=== PATIENT | female | born 1935 | race Caucasian/White ===

== ENCOUNTER 2016-08-14 10:22 | Inpatient (IN) | payer OTHER ==
[~2016-08-14] VITALS: Ht 157.5 cm; Wt 55.8 kg
[~2016-08-14 10:22] MED LIST: LIDODERM 5% P1 PATCH TD
[2016-08-14 11:14] LABS: EOSINOPHIL (%) 1.9 % (0-5); EOSINOPHIL COUNT 0.1 K/uL (0-0.3); HEMATOCRIT 28.1 % (36.0-46.0); IMMATURE GRANULOCYTE (%) 0.3 % (0.0-0.7); INSTRUMENT ABS NEUTROPHIL CT 4.2 K/uL; LYMPHOCYTE COUNT 1.4 K/uL (1.0-2.8); MCH 32.7 PG (29.0-34.0); MCHC 32.4 G/DL (30.0-36.0); MCV 101.1 FL (83-99); MEAN PLAT.VOLUME 9.1 uM^3 (9.5-12.4); MONOCYTE (%) 7.8 % (3-12); MONOCYTE COUNT 0.5 K/uL (0-0.8); NEUTROPHIL (%) 67.5 % (45-76); NEUTROPHIL COUNT 4.2 K/uL (1.8-6.4); PLATELET COUNT 145 K/uL (156-360); RBC DIS.WIDTH-CV 14.4 % (11.8-14.6); RBC DIS.WIDTH-SD 52.6 % (39-53); RED BLOOD COUNT 2.78 M/uL (3.80-5.20); WHITE BLOOD COUNT 6.3 K/uL (4.1-10.2)
[2016-08-14 11:25] LABS: CHLORIDE 98 mEq/L (99-109); POTASSIUM 4.4 mEq/L (3.7-5.4); SODIUM 144 mEq/L (136-147)
[2016-08-14 11:26] LABS: GLUCOSE 114 mg/dL (70-99)
[2016-08-14 11:28] LABS: ANION GAP 12 MEQ/L (2-14)
[2016-08-14 11:30] LABS: GFR ESTIMATE (CALCULATED) 9 mL/min/
[2016-08-14 11:31] LABS: INTER. NORMALIZED RATIO 1.1; PROTHROMBIN TIME 11.2 (9.2-11.2); PTT 30.2 (25-32); UREA NITROGEN (BUN) 37 mg/dL (9-23)
[2016-08-14 11:38] LABS: TROP-I INTERPRETATION INDETERMINATE; TROPONIN-I 0.37 ng/mL (0.0-0.30)
[2016-08-14] MEDS ORDERED: ATIVAN0.5 MG PO (13:10)
[2016-08-14] MEDS ORDERED: ADALAT CC 30 MG30 MG PO (13:11)
[2016-08-14] MEDS ORDERED: LIPITOR10 MG PO (13:12)
[2016-08-14] MEDS ORDERED: ERGOCALCIF50000 UNIT PO (13:12)
[2016-08-14] MEDS ORDERED: NEURONTIN100 MG PO (13:12)
[2016-08-14] MEDS ORDERED: LABETALOL HCL100 MG PO (13:13)
[2016-08-14] MEDS ORDERED: CELEXA20 MG PO (13:13)
[2016-08-14] MEDS ORDERED: PLAVIX75 MG PO (13:13)
[2016-08-14] MEDS ORDERED: LITE COAT ASPI325 M1 PO (13:14)
[2016-08-14] MEDS ORDERED: COLACE100 MG PO (13:16)
[2016-08-14] MEDS ORDERED: COMBIGAN O20 DROP/5 BOTH EYES (13:16)
[2016-08-14] MEDS ORDERED: B COMPLEX WITH1 EACH PO (13:17)
[2016-08-14] MEDS ORDERED: TYLENOL REGULA325 MG PO (13:19)
[2016-08-14] MEDS ORDERED: CATAPRES0.1 MG PO (13:20)
[2016-08-14] MEDS ORDERED: ULTRAM50 MG PO (13:20)
[2016-08-14] MEDS ORDERED: LEVEMIR FL100 UNIT/1 SC (13:50)
[2016-08-14 17:34] VITALS: BP 176/78
[2016-08-14 18:08] LABS: TROP-I INTERPRETATION POSITIVE
[2016-08-14 19:52] VITALS: BP 184/84
[2016-08-14 22:29] LABS: POINT-OF-CARE METER ID UU14174216
[2016-08-14 23:34] VITALS: BP 119/78
[2016-08-15 01:40] LABS: TROP-I INTERPRETATION POSITIVE; TROPONIN-I 1.72 ng/mL (0.0-0.30)
[2016-08-15 03:25] VITALS: BP 183/87
[2016-08-15 06:41] LABS: HEMATOCRIT 29.8 % (36.0-46.0); MCH 32.3 PG (29.0-34.0); MCHC 31.9 G/DL (30.0-36.0); MCV 101.4 FL (83-99); MEAN PLAT.VOLUME 10.2 uM^3 (9.5-12.4); PLATELET COUNT 130 K/uL (156-360); RBC DIS.WIDTH-CV 14.6 % (11.8-14.6); RBC DIS.WIDTH-SD 54.2 % (39-53); RED BLOOD COUNT 2.94 M/uL (3.80-5.20); WHITE BLOOD COUNT 6.9 K/uL (4.1-10.2)
[2016-08-15 07:09] LABS: ANION GAP 13 MEQ/L (2-14); CHLORIDE 98 MEQ/L (99-109); GFR ESTIMATE (CALCULATED) 7 mL/min/; GLUCOSE 145 mg/dL (70-99); POTASSIUM 4.7 MEQ/L (3.7-5.4); SAMPLE HEMOLYSIS CHECK 0; SAMPLE ICTERIC CHECK 0; SAMPLE LIPEMIA CHECK 0; SODIUM 141 MEQ/L (136-147); UREA NITROGEN (BUN) 42 mg/dL (9-23)
[2016-08-15 07:45] VITALS: BP 183/89
[2016-08-15 08:17] LABS: POINT-OF-CARE USER ID NUTSLF44
[2016-08-15 12:05] VITALS: BP 170/78
[2016-08-15 15:45] VITALS: BP 177/90
[2016-08-15 16:38] LABS: TROP-I INTERPRETATION POSITIVE; TROPONIN-I 1.63 ng/mL (0.0-0.30)
[2016-08-15 19:52] VITALS: BP 183/81
[2016-08-15 23:53] VITALS: BP 162/72
[2016-08-16 04:47] VITALS: BP 208/91
[2016-08-16 05:56] LABS: HEMATOCRIT 25.7 % (36.0-46.0); MCH 32.4 PG (29.0-34.0); MCHC 31.5 G/DL (30.0-36.0); MCV 102.8 FL (83-99); MEAN PLAT.VOLUME 10.4 uM^3 (9.5-12.4); PLATELET COUNT 116 K/uL (156-360); RBC DIS.WIDTH-CV 14.5 % (11.8-14.6); RBC DIS.WIDTH-SD 53.9 % (39-53); WHITE BLOOD COUNT 6.5 K/uL (4.1-10.2)
[2016-08-16 06:36] LABS: ANION GAP 9 MEQ/L (2-14); CHLORIDE 102 MEQ/L (99-109); GFR ESTIMATE (CALCULATED) 12 mL/min/; POTASSIUM 4.2 MEQ/L (3.7-5.4); SAMPLE HEMOLYSIS CHECK 0; SAMPLE ICTERIC CHECK 0; SAMPLE LIPEMIA CHECK 0; SODIUM 141 MEQ/L (136-147); UREA NITROGEN (BUN) 22 mg/dL (9-23)
[2016-08-16 06:38] LABS: GLUCOSE 107 mg/dL (70-99)
[2016-08-16 07:25] VITALS: BP 119/57
[2016-08-16 07:41] LABS: POINT-OF-CARE METER ID UU13113781
[2016-08-16 10:31] LABS: TROP-I INTERPRETATION POSITIVE; TROPONIN-I 2.05 ng/mL (0.0-0.30)
[2016-08-16 11:54] LABS: POINT-OF-CARE METER ID UU13113702
[2016-08-16 12:26] VITALS: BP 155/76
[2016-08-16 15:37] VITALS: BP 154/70
[2016-08-16 20:10] VITALS: BP 173/77
[2016-08-17] VITALS (7 sets, daily range): BP systolic 142–195; BP diastolic 63–84
[2016-08-17 04:50] LABS: EOSINOPHIL (%) 4.2 % (0-5); EOSINOPHIL COUNT 0.4 K/uL (0-0.3); HEMATOCRIT 26.3 % (36.0-46.0); IMMATURE GRANULOCYTE (%) 0.2 % (0.0-0.7); INSTRUMENT ABS NEUTROPHIL CT 6.9 K/uL; LYMPHOCYTE COUNT 1.7 K/uL (1.0-2.8); MCH 32.8 PG (29.0-34.0); MCHC 31.9 G/DL (30.0-36.0); MCV 102.7 FL (83-99); MONOCYTE (%) 5.6 % (3-12); MONOCYTE COUNT 0.5 K/uL (0-0.8); NEUTROPHIL (%) 71.9 % (45-76); NEUTROPHIL COUNT 6.9 K/uL (1.8-6.4); PLATELET COUNT 149 K/uL (156-360); RBC DIS.WIDTH-CV 14.3 % (11.8-14.6); RBC DIS.WIDTH-SD 53.8 % (39-53); RED BLOOD COUNT 2.56 M/uL (3.80-5.20); WHITE BLOOD COUNT 9.6 K/uL (4.1-10.2)
[2016-08-17 04:53] LABS: CHLORIDE 104 mEq/L (99-109); POTASSIUM 4.4 mEq/L (3.7-5.4); SODIUM 139 mEq/L (136-147)
[2016-08-17 04:55] LABS: GLUCOSE 125 mg/dL (70-99)
[2016-08-17 04:56] LABS: ANION GAP 11 MEQ/L (2-14)
[2016-08-17 04:58] LABS: GFR ESTIMATE (CALCULATED) 9 mL/min/
[2016-08-17 04:59] LABS: UREA NITROGEN (BUN) 31 mg/dL (9-23)
[2016-08-17 12:21] LABS: TROP-I INTERPRETATION POSITIVE; TROPONIN-I 1.28 ng/mL (0.0-0.30)
[2016-08-17 13:14] LABS: HBSG INDEX 0.17
[2016-08-17 16:53] LABS: POINT-OF-CARE METER ID UU14174216; POINT-OF-CARE USER ID NUTSLF44
[2016-08-17 20:51] LABS: POINT-OF-CARE METER ID UU14174216
[2016-08-18 00:23] VITALS: BP 180/88
[2016-08-18 03:01] VITALS: BP 135/64
[2016-08-18 03:02] LABS: BASOPHIL COUNT 0.1 K/uL (0-0.1); EOSINOPHIL (%) 4.6 % (0-5); EOSINOPHIL COUNT 0.3 K/uL (0-0.3); HEMATOCRIT 24.5 % (36.0-46.0); IMMATURE GRANULOCYTE (%) 0.4 % (0.0-0.7); INSTRUMENT ABS NEUTROPHIL CT 4.5 K/uL; LYMPHOCYTE COUNT 1.5 K/uL (1.0-2.8); MCH 32.9 PG (29.0-34.0); MCHC 32.2 G/DL (30.0-36.0); MCV 102.1 FL (83-99); MEAN PLAT.VOLUME 9.8 uM^3 (9.5-12.4); MONOCYTE (%) 8.3 % (3-12); MONOCYTE COUNT 0.6 K/uL (0-0.8); NEUTROPHIL (%) 64.1 % (45-76); NEUTROPHIL COUNT 4.5 K/uL (1.8-6.4); PLATELET COUNT 111 K/uL (156-360); RBC DIS.WIDTH-CV 14.4 % (11.8-14.6); RBC DIS.WIDTH-SD 52.6 % (39-53)
[2016-08-18 03:13] LABS: CHLORIDE 101 mEq/L (99-109); POTASSIUM 4.2 mEq/L (3.7-5.4); SODIUM 137 mEq/L (136-147)
[2016-08-18 03:14] LABS: GLUCOSE 112 mg/dL (70-99)
[2016-08-18 03:16] LABS: ANION GAP 9 MEQ/L (2-14)
[2016-08-18 03:18] LABS: GFR ESTIMATE (CALCULATED) 13 mL/min/
[2016-08-18 03:19] LABS: UREA NITROGEN (BUN) 18 mg/dL (9-23)
[2016-08-18 07:45] LABS: POINT-OF-CARE METER ID UU14174216
[2016-08-18 09:39] VITALS: BP 179/68
[2016-08-18 11:34] LABS: POINT-OF-CARE METER ID UU14174216
[2016-08-18 11:48] VITALS: BP 160/65
[2016-08-18 15:30] VITALS: BP 134/56
[2016-08-18 16:29] LABS: POINT-OF-CARE METER ID UU14174216
[2016-08-18 19:55] VITALS: BP 174/77
[2016-08-19 00:37] VITALS: BP 159/70
[2016-08-19 04:43] VITALS: BP 160/70
[2016-08-19 06:16] LABS: BASOPHIL COUNT 0.1 K/uL (0-0.1); EOSINOPHIL (%) 4.2 % (0-5); EOSINOPHIL COUNT 0.3 K/uL (0-0.3); HEMATOCRIT 22.8 % (36.0-46.0); IMMATURE GRANULOCYTE (%) 0.4 % (0.0-0.7); INSTRUMENT ABS NEUTROPHIL CT 4.7 K/uL; LYMPHOCYTE COUNT 1.3 K/uL (1.0-2.8); MCH 33.5 PG (29.0-34.0); MCHC 32.5 G/DL (30.0-36.0); MCV 103.2 FL (83-99); MEAN PLAT.VOLUME 9.8 uM^3 (9.5-12.4); MONOCYTE (%) 8.1 % (3-12); MONOCYTE COUNT 0.6 K/uL (0-0.8); NEUTROPHIL (%) 68.1 % (45-76); NEUTROPHIL COUNT 4.7 K/uL (1.8-6.4); PLATELET COUNT 119 K/uL (156-360); RBC DIS.WIDTH-CV 15.3 % (11.8-14.6); RBC DIS.WIDTH-SD 54.5 % (39-53); RED BLOOD COUNT 2.21 M/uL (3.80-5.20); WHITE BLOOD COUNT 6.9 K/uL (4.1-10.2)
[2016-08-19 06:44] LABS: ANION GAP 8 MEQ/L (2-14); CHLORIDE 101 MEQ/L (99-109); GFR ESTIMATE (CALCULATED) 9 mL/min/; GLUCOSE 97 mg/dL (70-99); POTASSIUM 4.3 MEQ/L (3.7-5.4); SAMPLE HEMOLYSIS CHECK 0; SAMPLE ICTERIC CHECK 0; SAMPLE LIPEMIA CHECK 0; SODIUM 136 MEQ/L (136-147); UREA NITROGEN (BUN) 26 mg/dL (9-23)
[2016-08-19 07:46] LABS: POINT-OF-CARE METER ID UU14174216
[2016-08-19 08:04] VITALS: BP 160/64
[2016-08-19 11:43] VITALS: BP 157/60
[2016-08-19 15:00] VITALS: BP 150/65
[2016-08-19 20:00] VITALS: BP 178/66
[2016-08-20 00:15] VITALS: BP 189/79
[2016-08-20 04:10] VITALS: BP 161/70
[2016-08-20 07:20] VITALS: BP 111/46
[2016-08-20 08:11] LABS: EOSINOPHIL (%) 3.8 % (0-5); EOSINOPHIL COUNT 0.2 K/uL (0-0.3); HEMATOCRIT 22.5 % (36.0-46.0); IMMATURE GRANULOCYTE (%) 0.5 % (0.0-0.7); INSTRUMENT ABS NEUTROPHIL CT 4.6 K/uL; MCH 32.7 PG (29.0-34.0); MCHC 31.1 G/DL (30.0-36.0); MCV 105.1 FL (83-99); MONOCYTE (%) 7.1 % (3-12); MONOCYTE COUNT 0.5 K/uL (0-0.8); NEUTROPHIL (%) 72.7 % (45-76); NEUTROPHIL COUNT 4.6 K/uL (1.8-6.4); PLATELET COUNT 130 K/uL (156-360); RBC DIS.WIDTH-CV 15.7 % (11.8-14.6); RBC DIS.WIDTH-SD 56.6 % (39-53); RED BLOOD COUNT 2.14 M/uL (3.80-5.20); WHITE BLOOD COUNT 6.3 K/uL (4.1-10.2)
[2016-08-20 08:29] LABS: ANION GAP 10 MEQ/L (2-14); CHLORIDE 101 MEQ/L (99-109); GFR ESTIMATE (CALCULATED) 7 mL/min/; GLUCOSE 103 mg/dL (70-99); POTASSIUM 4.5 MEQ/L (3.7-5.4); SAMPLE HEMOLYSIS CHECK 0; SAMPLE ICTERIC CHECK 0; SAMPLE LIPEMIA CHECK 0; SODIUM 137 MEQ/L (136-147); UREA NITROGEN (BUN) 37 mg/dL (9-23)
[2016-08-20 12:00] VITALS: BP 190/70
[2016-08-20 15:20] VITALS: BP 109/54
[2016-08-20 19:10] VITALS: BP 189/79
[2016-08-20 20:14] LABS: HEMATOCRIT 29.7 % (36.0-46.0); MCV 101.4 FL (83-99)
[2016-08-21] VITALS: BP 178/77
[2016-08-21 03:09] VITALS: BP 160/51
[2016-08-21 08:19] VITALS: BP 178/83
[2016-08-21 11:45] VITALS: BP 173/83
[2016-08-21] MEDS ORDERED: LABETALOL HCL200 MG PO (13:37)
[2016-08-21] MEDS ORDERED: Procardia XL,Adalat PO (13:37)
[2016-08-21] MEDS ORDERED: LISINOPRIL10 MG PO (13:38)
[2016-08-21 14:00] VITALS: BP 114/65
== END 2016-08-21 14:35 | disposition home or self-care (01) | DRG 280 ==
LOC: EME → EDBD 10:22 → EME 10:22 → 4EAST 14:02 → EDOF 14:02 → 4EAST 14:02
PROVIDERS: Emergency Medicine; Internal Medicine; Internal Medicine Cardiovascular Disease; Physician Assistant Medical; Student in an Organized Health Care Education/Training Program
PROC: 5A1D60Z (ICD-10-PCS; principal; 2016-08-15)
DX: I21.4 Non-ST elevation (NSTEMI) myocardial infarction (principal); N25.81 Secondary hyperparathyroidism of renal origin; N18.6 End stage renal disease; I12.0 Hypertensive chronic kidney disease with stage 5 chronic kidney disease or end stage renal disease; Z86.73 Personal history of transient ischemic attack (TIA), and cerebral infarction without residual deficits; Z99.2 Dependence on renal dialysis; R07.9 Chest pain, unspecified; E11.22 Type 2 diabetes mellitus with diabetic chronic kidney disease; I25.10 Atherosclerotic heart disease of native coronary artery without angina pectoris; I44.7 Left bundle-branch block, unspecified; E78.5 Hyperlipidemia, unspecified; Z95.5 Presence of coronary angioplasty implant and graft; I24.9 Acute ischemic heart disease, unspecified; Z79.4 Long term (current) use of insulin; Z95.1 Presence of aortocoronary bypass graft; I70.0 Atherosclerosis of aorta; D63.1 Anemia in chronic kidney disease; Z88.8 Allergy status to other drugs, medicaments and biological substances; E83.39 Other disorders of phosphorus metabolism
CPT/HCPCS: 71010; 71020; 78452; 80048; 80069; 82948; 84484; 85014; 85018; 85025; 85027; 85610; 85730; 86850; 86900; 86901; 86920; 87340; 93005; 93017; 93306; 94799; 99281; 99285; A9500; G0378; J0881; J1270; J1644; J1756; J1815; J2785; J2997; P9016

== ENCOUNTER 2016-09-24 21:10 | Inpatient (IN) | payer OTHER ==
[~2016-09-24] VITALS: Ht 154.9 cm; Wt 58.7 kg
[~2016-09-24 21:10] MED LIST changes: +ADALAT CC 30 MG30 MG PO; +ATIVAN0.5 MG PO; +B COMPLEX WITH1 EACH PO; +CATAPRES0.1 MG PO; +CELEXA20 MG PO; +COLACE100 MG PO; +COMBIGAN O20 DROP/5 BOTH EYES; +ERGOCALCIF50000 UNIT PO; +LABETALOL HCL100 MG PO; +LABETALOL HCL200 MG PO; +LEVEMIR FL100 UNIT/1 SC; +LIPITOR10 MG PO; +LISINOPRIL10 MG PO; +LITE COAT ASPI325 M1 PO; +NEURONTIN100 MG PO; +PLAVIX75 MG PO; +Procardia XL,Adalat PO; +TYLENOL REGULA325 MG PO; +ULTRAM50 MG PO
[2016-09-24 21:32] LABS: HEMATOCRIT 30.4 % (36.0-46.0); MCH 33.9 PG (29.0-34.0); MCHC 32.6 G/DL (30.0-36.0); MCV 104.1 FL (83-99); MEAN PLAT.VOLUME 9.3 uM^3 (9.5-12.4); PLATELET COUNT 154 K/uL (156-360); RBC DIS.WIDTH-SD 61.5 % (39-53); RED BLOOD COUNT 2.92 M/uL (3.80-5.20); WHITE BLOOD COUNT 6.2 K/uL (4.1-10.2)
[2016-09-24 21:40] LABS: CHLORIDE 99 mEq/L (99-109); POTASSIUM 4.2 mEq/L (3.7-5.4); SODIUM 143 mEq/L (136-147)
[2016-09-24 21:42] LABS: GLUCOSE 144 mg/dL (70-99)
[2016-09-24 21:43] LABS: INTER. NORMALIZED RATIO 1.1; PROTHROMBIN TIME 10.9 (9.2-11.2); PTT 28.9 (25-32)
[2016-09-24 21:44] LABS: ANION GAP 13 MEQ/L (2-14)
[2016-09-24 21:46] LABS: GFR ESTIMATE (CALCULATED) 11 mL/min/
[2016-09-24 21:47] LABS: UREA NITROGEN (BUN) 24 mg/dL (9-23)
[2016-09-24 22:14] LABS: TROP-I INTERPRETATION NEGATIVE; TROPONIN-I 0.08 ng/mL (0.0-0.30)
[2016-09-24] MEDS ORDERED: COLACE100 MG PO (22:25)
[2016-09-24] MEDS ORDERED: PROCARDIA XL60 MG PO (22:27)
[2016-09-24] MEDS ORDERED: SUPER B COMP1 TABLET PO (22:28)
[2016-09-24] MEDS ORDERED: REFRESH PLUS1 EACH LEFT EYE (22:30)
[2016-09-25] VITALS (7 sets, daily range): BP systolic 136–190; BP diastolic 60–82
[2016-09-25 00:48] LABS: BASE EXCESS 8.1 mEq/L (-3 to +3); BICARBONATE 33.3 mEq/L (22-26); CARBOXY HGB 2.1 % (0-5); METHEMOGLOBIN 0.8 % (0-1.5); PCO2 49 mm Hg (35-45); PO2 108 mm Hg (80-100); pH 7.44 (7.35-7.45)
[2016-09-25 00:49] LABS: COMMENTS - BLOOD GASES C+; DEVICE NCHH; FI02 100 %; O2 FLOW 20 L/MIN; SITE RR; TOTAL RESP RATE 18 resp/min
[2016-09-25 09:45] LABS: INTER. NORMALIZED RATIO 1.1; PROTHROMBIN TIME 11.3 (9.2-11.2); PTT 37.9 (25-32)
[2016-09-25 13:06] LABS: POINT-OF-CARE METER ID UU14174216
[2016-09-25 16:01] LABS: POINT-OF-CARE METER ID UU14174216
[2016-09-25 21:28] LABS: POINT-OF-CARE METER ID UU14174216
[2016-09-26 04:23] VITALS: BP 147/65
[2016-09-26 04:59] LABS: HEMATOCRIT 27.2 % (36.0-46.0); MCH 33.9 PG (29.0-34.0); MCV 105.8 FL (83-99); PLATELET COUNT 122 K/uL (156-360); RBC DIS.WIDTH-CV 15.9 % (11.8-14.6); RBC DIS.WIDTH-SD 61.7 % (39-53); RED BLOOD COUNT 2.57 M/uL (3.80-5.20); WHITE BLOOD COUNT 7.9 K/uL (4.1-10.2)
[2016-09-26 05:12] LABS: CHLORIDE 100 mEq/L (99-109); POTASSIUM 4.8 mEq/L (3.7-5.4); SODIUM 140 mEq/L (136-147)
[2016-09-26 05:15] LABS: GLUCOSE 120 mg/dL (70-99)
[2016-09-26 05:16] LABS: ANION GAP 12 MEQ/L (2-14)
[2016-09-26 05:18] LABS: ALKALINE PHOSPHATASE 65 IU/L (3-129)
[2016-09-26 05:19] LABS: GFR ESTIMATE (CALCULATED) 7 mL/min/
[2016-09-26 05:27] LABS: UREA NITROGEN (BUN) 39 mg/dL (9-23)
[2016-09-26 07:17] VITALS: BP 164/74
[2016-09-26 14:59] VITALS: BP 164/68
[2016-09-26 21:05] VITALS: BP 184/79
[2016-09-27 00:19] VITALS: BP 147/67
[2016-09-27 04:24] VITALS: BP 132/64
[2016-09-27 07:33] LABS: BASOPHIL COUNT 0.1 K/uL (0-0.1); EOSINOPHIL (%) 2.6 % (0-5); EOSINOPHIL COUNT 0.2 K/uL (0-0.3); IMMATURE GRANULOCYTE (%) 0.4 % (0.0-0.7); INSTRUMENT ABS NEUTROPHIL CT 5.4 K/uL; MCH 33.6 PG (29.0-34.0); MCHC 31.3 G/DL (30.0-36.0); MCV 107.1 FL (83-99); MEAN PLAT.VOLUME 10.1 uM^3 (9.5-12.4); MONOCYTE (%) 7.1 % (3-12); MONOCYTE COUNT 0.5 K/uL (0-0.8); NEUTROPHIL COUNT 5.4 K/uL (1.8-6.4); PLATELET COUNT 157 K/uL (156-360); RBC DIS.WIDTH-CV 15.4 % (11.8-14.6); RBC DIS.WIDTH-SD 61.3 % (39-53); WHITE BLOOD COUNT 7.2 K/uL (4.1-10.2)
[2016-09-27 07:48] LABS: ANION GAP 13 MEQ/L (2-14); CHLORIDE 95 MEQ/L (99-109); GLUCOSE 98 mg/dL (70-99); POTASSIUM 4.7 MEQ/L (3.7-5.4); SAMPLE HEMOLYSIS CHECK 0; SAMPLE ICTERIC CHECK 0; SAMPLE LIPEMIA CHECK 0; SODIUM 137 MEQ/L (136-147); UREA NITROGEN (BUN) 26 mg/dL (9-23)
[2016-09-27 07:50] LABS: GFR ESTIMATE (CALCULATED) 11 mL/min/
[2016-09-27 13:47] LABS: POINT-OF-CARE METER ID UU13113675
[2016-09-27 14:56] LABS: HEMATOCRIT 26.7 % (36.0-46.0); MCH 34.1 PG (29.0-34.0); MCHC 31.5 G/DL (30.0-36.0); MCV 108.5 FL (83-99); PLATELET COUNT 156 K/uL (156-360); RBC DIS.WIDTH-CV 15.5 % (11.8-14.6); RBC DIS.WIDTH-SD 61.2 % (39-53); RED BLOOD COUNT 2.46 M/uL (3.80-5.20)
[2016-09-27 15:07] VITALS: BP 157/68
[2016-09-27 15:10] LABS: WHITE BLOOD COUNT 11.9 K/uL (4.1-10.2)
[2016-09-27 19:44] VITALS: BP 141/83
[2016-09-27 23:40] VITALS: BP 135/60
[2016-09-28 03:59] VITALS: BP 144/62
[2016-09-28 05:10] LABS: HEMATOCRIT 21.3 % (36.0-46.0); MCH 34.5 PG (29.0-34.0); MCHC 32.9 G/DL (30.0-36.0); MCV 104.9 FL (83-99); MEAN PLAT.VOLUME 10.4 uM^3 (9.5-12.4); PLATELET COUNT 165 K/uL (156-360); RBC DIS.WIDTH-CV 15.2 % (11.8-14.6); RBC DIS.WIDTH-SD 58.9 % (39-53); RED BLOOD COUNT 2.03 M/uL (3.80-5.20)
[2016-09-28 05:11] LABS: WHITE BLOOD COUNT 8.2 K/uL (4.1-10.2)
[2016-09-28 05:14] LABS: CHLORIDE 96 mEq/L (99-109); POTASSIUM 5.6 mEq/L (3.7-5.4); SODIUM 134 mEq/L (136-147)
[2016-09-28 05:16] LABS: GLUCOSE 136 mg/dL (70-99)
[2016-09-28 05:17] LABS: ANION GAP 16 MEQ/L (2-14)
[2016-09-28 05:20] LABS: GFR ESTIMATE (CALCULATED) 7 mL/min/
[2016-09-28 05:24] LABS: TROP-I INTERPRETATION NEGATIVE; TROPONIN-I 0.12 ng/mL (0.0-0.30)
[2016-09-28 05:25] LABS: UREA NITROGEN (BUN) 45 mg/dL (9-23)
[2016-09-28 06:51] LABS: POINT-OF-CARE METER ID UU14188577
[2016-09-28 09:24] LABS: EOSINOPHIL (%) 0.7 % (0-5); EOSINOPHIL COUNT 0.1 K/uL (0-0.3); HEMATOCRIT 20.9 % (36.0-46.0); IMMATURE GRANULOCYTE (%) 0.6 % (0.0-0.7); IMMATURE GRANULOCYTE COUNT 0.1 K/uL; INSTRUMENT ABS NEUTROPHIL CT 8.3 K/uL; MCH 34.2 PG (29.0-34.0); MCHC 32.1 G/DL (30.0-36.0); MCV 106.6 FL (83-99); MEAN PLAT.VOLUME 10.2 uM^3 (9.5-12.4); MONOCYTE (%) 8.5 % (3-12); MONOCYTE COUNT 0.9 K/uL (0-0.8); NEUTROPHIL (%) 80.6 % (45-76); NEUTROPHIL COUNT 8.3 K/uL (1.8-6.4); PLATELET COUNT 185 K/uL (156-360); RBC DIS.WIDTH-CV 15.5 % (11.8-14.6); RBC DIS.WIDTH-SD 59.8 % (39-53); RED BLOOD COUNT 1.96 M/uL (3.80-5.20); WHITE BLOOD COUNT 10.3 K/uL (4.1-10.2)
[2016-09-28 19:43] VITALS: BP 132/61
[2016-09-28 22:12] LABS: POINT-OF-CARE METER ID UU14188577
[2016-09-28 23:39] VITALS: BP 132/63
[2016-09-29 03:46] VITALS: BP 139/63
[2016-09-29 04:54] LABS: HEMATOCRIT 26.4 % (36.0-46.0); MCV 97.1 FL (83-99)
[2016-09-29 06:46] LABS: POINT-OF-CARE METER ID UU14188577
[2016-09-29 07:31] VITALS: BP 136/65
[2016-09-29 11:28] VITALS: BP 128/62
[2016-09-29 15:22] VITALS: BP 126/60
[2016-09-29 19:41] VITALS: BP 161/70
[2016-09-29 23:46] VITALS: BP 180/74
[2016-09-30] VITALS (7 sets, daily range): BP systolic 177–199; BP diastolic 74–93
[2016-09-30 05:54] LABS: EOSINOPHIL (%) 1.7 % (0-5); EOSINOPHIL COUNT 0.2 K/uL (0-0.3); HEMATOCRIT 24.5 % (36.0-46.0); IMMATURE GRANULOCYTE (%) 0.4 % (0.0-0.7); INSTRUMENT ABS NEUTROPHIL CT 8.3 K/uL; MCH 33.3 PG (29.0-34.0); MCHC 33.9 G/DL (30.0-36.0); MCV 98.4 FL (83-99); MEAN PLAT.VOLUME 9.9 uM^3 (9.5-12.4); MONOCYTE (%) 7.9 % (3-12); MONOCYTE COUNT 0.8 K/uL (0-0.8); NEUTROPHIL (%) 80.5 % (45-76); NEUTROPHIL COUNT 8.3 K/uL (1.8-6.4); PLATELET COUNT 167 K/uL (156-360); RBC DIS.WIDTH-CV 17.6 % (11.8-14.6); RBC DIS.WIDTH-SD 63.4 % (39-53); WHITE BLOOD COUNT 10.3 K/uL (4.1-10.2)
[2016-09-30 06:01] LABS: RED BLOOD COUNT 2.49 M/uL (3.80-5.20)
[2016-09-30 06:14] LABS: ANION GAP 13 MEQ/L (2-14); CHLORIDE 96 MEQ/L (99-109); GFR ESTIMATE (CALCULATED) 8 mL/min/; GLUCOSE 121 mg/dL (70-99); SAMPLE HEMOLYSIS CHECK 0; SAMPLE ICTERIC CHECK 0; SAMPLE LIPEMIA CHECK 0; SODIUM 135 MEQ/L (136-147); UREA NITROGEN (BUN) 39 mg/dL (9-23)
[2016-09-30 06:17] LABS: POTASSIUM 3.9 MEQ/L (3.7-5.4)
[2016-09-30 06:38] LABS: POINT-OF-CARE METER ID UU14188577
[2016-09-30 16:35] LABS: POINT-OF-CARE METER ID UU14188577
[2016-10-01] VITALS (7 sets, daily range): BP systolic 128–184; BP diastolic 52–70
[2016-10-01 05:54] LABS: POINT-OF-CARE METER ID UU14149397
[2016-10-01 06:08] LABS: HEMATOCRIT 24.7 % (36.0-46.0); MCH 33.1 PG (29.0-34.0); MCHC 33.2 G/DL (30.0-36.0); MCV 99.6 FL (83-99); MEAN PLAT.VOLUME 9.7 uM^3 (9.5-12.4); PLATELET COUNT 191 K/uL (156-360); RBC DIS.WIDTH-CV 16.9 % (11.8-14.6); RBC DIS.WIDTH-SD 61.2 % (39-53); RED BLOOD COUNT 2.48 M/uL (3.80-5.20); WHITE BLOOD COUNT 10.2 K/uL (4.1-10.2)
[2016-10-01 06:44] LABS: ANION GAP 15 MEQ/L (2-14); CHLORIDE 97 MEQ/L (99-109); GFR ESTIMATE (CALCULATED) 7 mL/min/; POTASSIUM 4.1 MEQ/L (3.7-5.4); SAMPLE HEMOLYSIS CHECK 0; SAMPLE ICTERIC CHECK 0; SAMPLE LIPEMIA CHECK 0; SODIUM 136 MEQ/L (136-147); UREA NITROGEN (BUN) 48 mg/dL (9-23)
[2016-10-01 06:45] LABS: GLUCOSE 90 mg/dL (70-99)
[2016-10-01 11:34] LABS: POINT-OF-CARE METER ID UU14149397
[2016-10-01 21:30] LABS: POINT-OF-CARE METER ID UU14149397
[2016-10-02 04:21] VITALS: BP 130/59
[2016-10-02 06:34] LABS: POINT-OF-CARE METER ID UU14188577
[2016-10-02 08:10] VITALS: BP 143/65
[2016-10-02 10:38] LABS: EOSINOPHIL (%) 1.3 % (0-5); EOSINOPHIL COUNT 0.1 K/uL (0-0.3); HEMATOCRIT 25.7 % (36.0-46.0); IMMATURE GRANULOCYTE (%) 0.5 % (0.0-0.7); IMMATURE GRANULOCYTE COUNT 0.1 K/uL; INSTRUMENT ABS NEUTROPHIL CT 8.6 K/uL; LYMPHOCYTE COUNT 0.6 K/uL (1.0-2.8); MCH 32.3 PG (29.0-34.0); MCHC 32.3 G/DL (30.0-36.0); MEAN PLAT.VOLUME 9.7 uM^3 (9.5-12.4); MONOCYTE (%) 7.6 % (3-12); MONOCYTE COUNT 0.8 K/uL (0-0.8); NEUTROPHIL (%) 84.4 % (45-76); NEUTROPHIL COUNT 8.6 K/uL (1.8-6.4); PLATELET COUNT 233 K/uL (156-360); RBC DIS.WIDTH-CV 16.9 % (11.8-14.6); RBC DIS.WIDTH-SD 60.6 % (39-53); RED BLOOD COUNT 2.57 M/uL (3.80-5.20); WHITE BLOOD COUNT 10.2 K/uL (4.1-10.2)
[2016-10-02 10:49] LABS: CHLORIDE 99 mEq/L (99-109); POTASSIUM 4.3 mEq/L (3.7-5.4); SODIUM 137 mEq/L (136-147)
[2016-10-02 10:53] LABS: ANION GAP 18 MEQ/L (2-14); TOTAL BILIRUBIN 0.8 mg/dL (0.0-1.0)
[2016-10-02 10:55] LABS: ALKALINE PHOSPHATASE 57 IU/L (3-129); GFR ESTIMATE (CALCULATED) 10 mL/min/
[2016-10-02 10:56] LABS: GLUCOSE 157 mg/dL (70-99); UREA NITROGEN (BUN) 33 mg/dL (9-23)
[2016-10-02 15:27] VITALS: BP 144/64
[2016-10-02 17:01] LABS: POINT-OF-CARE METER ID UU14149397
[2016-10-02 19:55] VITALS: BP 136/62
[2016-10-02 20:59] LABS: POINT-OF-CARE METER ID UU14149397; POINT-OF-CARE USER ID AHSUCEG
[2016-10-02 23:15] VITALS: BP 119/57
[2016-10-03 03:30] VITALS: BP 132/63
[2016-10-03 05:58] LABS: EOSINOPHIL (%) 1.6 % (0-5); EOSINOPHIL COUNT 0.2 K/uL (0-0.3); HEMATOCRIT 23.8 % (36.0-46.0); IMMATURE GRANULOCYTE (%) 0.2 % (0.0-0.7); LYMPHOCYTE COUNT 0.7 K/uL (1.0-2.8); MCH 32.5 PG (29.0-34.0); MCHC 32.4 G/DL (30.0-36.0); MCV 100.4 FL (83-99); MEAN PLAT.VOLUME 9.4 uM^3 (9.5-12.4); MONOCYTE (%) 10.2 % (3-12); NEUTROPHIL (%) 80.5 % (45-76); PLATELET COUNT 216 K/uL (156-360); RBC DIS.WIDTH-CV 16.3 % (11.8-14.6); RBC DIS.WIDTH-SD 59.8 % (39-53); RED BLOOD COUNT 2.37 M/uL (3.80-5.20)
[2016-10-03 06:35] LABS: ALKALINE PHOSPHATASE 51 IU/L (3-129); ANION GAP 14 MEQ/L (2-14); CHLORIDE 95 MEQ/L (99-109); GLUCOSE 127 mg/dL (70-99); POTASSIUM 4.1 MEQ/L (3.7-5.4); SAMPLE HEMOLYSIS CHECK 0; SAMPLE ICTERIC CHECK 0; SAMPLE LIPEMIA CHECK 0; SODIUM 133 MEQ/L (136-147); TOTAL BILIRUBIN 0.7 MG/DL (0.0-1.0); UREA NITROGEN (BUN) 40 mg/dL (9-23)
[2016-10-03 06:36] LABS: GFR ESTIMATE (CALCULATED) 8 mL/min/
[2016-10-03 11:41] VITALS: BP 157/70
[2016-10-03] MEDS ORDERED: SPIRIVA RESPIMAT4 GM IH (12:45)
[2016-10-03] MEDS ORDERED: ADVAIR HFA120 INHALA IH (12:46)
[2016-10-03] MEDS ORDERED: ACIDOPHILUS LA1 EACH PO (12:47)
[2016-10-03] MEDS ORDERED: THERAGRAN1 TABLET PO (12:47)
[2016-10-03] MEDS ORDERED: ENDOCET 5-3251 EACH PO (12:48)
[2016-10-03] MEDS ORDERED: VENTOLIN HFA18 GM IH (12:48)
[2016-10-03 12:55] LABS: HEMATOCRIT 25.1 % (36.0-46.0); MCV 98.8 FL (83-99)
[2016-10-03] MEDS ORDERED: NOVOLOG PE100 UNITS/ SC (13:01)
[2016-10-03 16:06] VITALS: BP 125/60
[2016-10-03 16:09] LABS: POINT-OF-CARE METER ID UU14149397
[2016-10-03 19:38] VITALS: BP 159/70
[2016-10-03 23:51] VITALS: BP 181/77
[2016-10-04 04:09] VITALS: BP 194/79
[2016-10-04 07:02] LABS: POINT-OF-CARE METER ID UU14149397
[2016-10-04 08:14] VITALS: BP 179/77
[2016-10-04 12:00] LABS: POINT-OF-CARE METER ID UU14149397
[2016-10-04 12:06] VITALS: BP 173/71
[2016-10-04 16:04] LABS: HEMATOCRIT 26.2 % (36.0-46.0); MCH 32.4 PG (29.0-34.0); MCHC 32.1 G/DL (30.0-36.0); MCV 101.2 FL (83-99); MEAN PLAT.VOLUME 9.1 uM^3 (9.5-12.4); PLATELET COUNT 265 K/uL (156-360); RBC DIS.WIDTH-SD 59.5 % (39-53); RED BLOOD COUNT 2.59 M/uL (3.80-5.20); WHITE BLOOD COUNT 9.6 K/uL (4.1-10.2)
[2016-10-04 16:16] LABS: CHLORIDE 98 mEq/L (99-109); POTASSIUM 4.3 mEq/L (3.7-5.4); SODIUM 135 mEq/L (136-147)
[2016-10-04 16:18] LABS: GLUCOSE 113 mg/dL (70-99)
[2016-10-04 16:19] LABS: ANION GAP 15 MEQ/L (2-14)
[2016-10-04 16:22] LABS: GFR ESTIMATE (CALCULATED) 10 mL/min/
[2016-10-04 16:23] LABS: UREA NITROGEN (BUN) 34 mg/dL (9-23)
[2016-10-04 16:28] VITALS: BP 168/77
[2016-10-04 19:41] VITALS: BP 160/68
[2016-10-04 23:35] VITALS: BP 167/77
[2016-10-05 03:23] VITALS: BP 169/75
[2016-10-05 06:58] LABS: POINT-OF-CARE METER ID UU14188577
[2016-10-05 07:14] VITALS: BP 175/74
[2016-10-05 07:55] LABS: BASOPHIL COUNT 0.1 K/uL (0-0.1); EOSINOPHIL (%) 3.7 % (0-5); EOSINOPHIL COUNT 0.3 K/uL (0-0.3); HEMATOCRIT 29.2 % (36.0-46.0); IMMATURE GRANULOCYTE (%) 0.6 % (0.0-0.7); INSTRUMENT ABS NEUTROPHIL CT 4.9 K/uL; LYMPHOCYTE COUNT 0.9 K/uL (1.0-2.8); MCH 31.7 PG (29.0-34.0); MCHC 31.5 G/DL (30.0-36.0); MCV 100.7 FL (83-99); MEAN PLAT.VOLUME 9.2 uM^3 (9.5-12.4); MONOCYTE (%) 13.1 % (3-12); MONOCYTE COUNT 0.9 K/uL (0-0.8); NEUTROPHIL (%) 69.1 % (45-76); NEUTROPHIL COUNT 4.9 K/uL (1.8-6.4); PLATELET COUNT 310 K/uL (156-360); RBC DIS.WIDTH-CV 15.9 % (11.8-14.6); RBC DIS.WIDTH-SD 58.9 % (39-53)
[2016-10-05 08:49] LABS: ALKALINE PHOSPHATASE 56 IU/L (3-129); ANION GAP 14 MEQ/L (2-14); CHLORIDE 98 MEQ/L (99-109); GFR ESTIMATE (CALCULATED) 8 mL/min/; POTASSIUM 4.3 MEQ/L (3.7-5.4); SAMPLE HEMOLYSIS CHECK 0; SAMPLE ICTERIC CHECK 0; SAMPLE LIPEMIA CHECK 0; SODIUM 136 MEQ/L (136-147); TOTAL BILIRUBIN 0.8 MG/DL (0.0-1.0); UREA NITROGEN (BUN) 39 mg/dL (9-23)
[2016-10-05 09:05] LABS: GLUCOSE 74 mg/dL (70-99)
[2016-10-05 11:33] VITALS: BP 165/75
[2016-10-05 17:55] LABS: POINT-OF-CARE METER ID UU14188577
[2016-10-05 20:22] VITALS: BP 144/67
[2016-10-05 21:35] LABS: POINT-OF-CARE METER ID UU14188577
[2016-10-05 23:34] VITALS: BP 160/70
[2016-10-06] VITALS (7 sets, daily range): BP systolic 90–175; BP diastolic 36–78
[2016-10-06 06:31] LABS: POINT-OF-CARE METER ID UU14188577
[2016-10-06 14:47] LABS: TROP-I INTERPRETATION NEGATIVE; TROPONIN-I 0.22 ng/mL (0.0-0.30)
[2016-10-06 17:29] LABS: POINT-OF-CARE METER ID UU14188577
[2016-10-06 19:32] LABS: TROP-I INTERPRETATION NEGATIVE; TROPONIN-I 0.23 ng/mL (0.0-0.30)
[2016-10-06 21:58] LABS: POINT-OF-CARE METER ID UU14149397
[2016-10-07 01:46] LABS: TROP-I INTERPRETATION NEGATIVE; TROPONIN-I 0.22 ng/mL (0.0-0.30)
[2016-10-07 04:51] VITALS: BP 174/74
[2016-10-07 06:07] LABS: POINT-OF-CARE METER ID UU14149397
[2016-10-07 07:23] LABS: BASOPHIL COUNT 0.1 K/uL (0-0.1); EOSINOPHIL (%) 1.7 % (0-5); EOSINOPHIL COUNT 0.2 K/uL (0-0.3); HEMATOCRIT 28.1 % (36.0-46.0); IMMATURE GRANULOCYTE (%) 0.6 % (0.0-0.7); IMMATURE GRANULOCYTE COUNT 0.1 K/uL; INSTRUMENT ABS NEUTROPHIL CT 8.3 K/uL; LYMPHOCYTE COUNT 0.8 K/uL (1.0-2.8); MCH 32.5 PG (29.0-34.0); MCV 101.4 FL (83-99); MEAN PLAT.VOLUME 9.8 uM^3 (9.5-12.4); MONOCYTE (%) 9.9 % (3-12); NEUTROPHIL COUNT 8.3 K/uL (1.8-6.4); PLATELET COUNT 331 K/uL (156-360); RBC DIS.WIDTH-SD 59.7 % (39-53); RED BLOOD COUNT 2.77 M/uL (3.80-5.20); WHITE BLOOD COUNT 10.3 K/uL (4.1-10.2)
[2016-10-07 07:47] LABS: ANION GAP 12 MEQ/L (2-14); CHLORIDE 96 MEQ/L (99-109); GFR ESTIMATE (CALCULATED) 9 mL/min/; POTASSIUM 4.9 MEQ/L (3.7-5.4); SAMPLE HEMOLYSIS CHECK 0; SAMPLE ICTERIC CHECK 0; SAMPLE LIPEMIA CHECK 0; SODIUM 134 MEQ/L (136-147); UREA NITROGEN (BUN) 40 mg/dL (9-23)
[2016-10-07 07:48] LABS: GLUCOSE 149 mg/dL (70-99)
[2016-10-07 08:00] VITALS: BP 118/50
[2016-10-07 11:47] LABS: POINT-OF-CARE METER ID UU14149397
[2016-10-07 11:50] VITALS: BP 190/87
[2016-10-07 12:10] VITALS: BP 194/72
[2016-10-07 16:16] LABS: POINT-OF-CARE METER ID UU14188577
[2016-10-07 16:42] VITALS: BP 178/82
[2016-10-07 19:23] VITALS: BP 182/85
[2016-10-07 21:46] LABS: POINT-OF-CARE METER ID UU14188577
[2016-10-08 00:21] VITALS: BP 178/81
[2016-10-08 03:57] VITALS: BP 167/74
[2016-10-08 07:21] VITALS: BP 187/77
[2016-10-08 09:20] LABS: EOSINOPHIL (%) 2.4 % (0-5); EOSINOPHIL COUNT 0.2 K/uL (0-0.3); HEMATOCRIT 23.5 % (36.0-46.0); IMMATURE GRANULOCYTE (%) 0.9 % (0.0-0.7); IMMATURE GRANULOCYTE COUNT 0.1 K/uL; INSTRUMENT ABS NEUTROPHIL CT 7.4 K/uL; LYMPHOCYTE COUNT 0.9 K/uL (1.0-2.8); MCH 31.9 PG (29.0-34.0); MCHC 31.9 G/DL (30.0-36.0); MEAN PLAT.VOLUME 8.9 uM^3 (9.5-12.4); MONOCYTE (%) 8.8 % (3-12); MONOCYTE COUNT 0.8 K/uL (0-0.8); NEUTROPHIL (%) 78.1 % (45-76); NEUTROPHIL COUNT 7.4 K/uL (1.8-6.4); PLATELET COUNT 340 K/uL (156-360); RBC DIS.WIDTH-SD 58.8 % (39-53); RED BLOOD COUNT 2.35 M/uL (3.80-5.20); WHITE BLOOD COUNT 9.5 K/uL (4.1-10.2)
[2016-10-08 09:34] LABS: ANION GAP 12 MEQ/L (2-14); CHLORIDE 95 MEQ/L (99-109); POTASSIUM 4.8 MEQ/L (3.7-5.4); SAMPLE HEMOLYSIS CHECK 0; SAMPLE ICTERIC CHECK 0; SAMPLE LIPEMIA CHECK 0; SODIUM 132 MEQ/L (136-147)
[2016-10-08 10:22] LABS: GFR ESTIMATE (CALCULATED) 7 mL/min/; GLUCOSE 129 mg/dL (70-99); UREA NITROGEN (BUN) 57 mg/dL (9-23)
[2016-10-08 15:15] VITALS: BP 160/62
[2016-10-08 20:07] VITALS: BP 135/50
[2016-10-08 22:36] LABS: POINT-OF-CARE METER ID UU14149397
[2016-10-09 00:33] VITALS: BP 134/61
[2016-10-09 03:34] VITALS: BP 139/66
[2016-10-09 06:41] LABS: MCH 31.2 PG (29.0-34.0); MCHC 31.1 G/DL (30.0-36.0); MCV 100.4 FL (83-99); MEAN PLAT.VOLUME 8.8 uM^3 (9.5-12.4); PLATELET COUNT 384 K/uL (156-360); RBC DIS.WIDTH-CV 15.9 % (11.8-14.6); RBC DIS.WIDTH-SD 58.2 % (39-53); RED BLOOD COUNT 2.69 M/uL (3.80-5.20); WHITE BLOOD COUNT 9.3 K/uL (4.1-10.2)
[2016-10-09 06:42] LABS: POINT-OF-CARE METER ID UU14149397
[2016-10-09 07:14] LABS: ANION GAP 13 MEQ/L (2-14); CHLORIDE 95 MEQ/L (99-109); GFR ESTIMATE (CALCULATED) 11 mL/min/; GLUCOSE 113 mg/dL (70-99); POTASSIUM 4.3 MEQ/L (3.7-5.4); SAMPLE HEMOLYSIS CHECK 0; SAMPLE ICTERIC CHECK 0; SAMPLE LIPEMIA CHECK 0; SODIUM 136 MEQ/L (136-147); UREA NITROGEN (BUN) 32 mg/dL (9-23)
[2016-10-09 07:47] LABS: FERRITIN 1455 NG/ML (10-291)
[2016-10-09 08:34] VITALS: BP 154/74
[2016-10-09 12:00] VITALS: BP 142/65
[2016-10-09 12:05] LABS: POINT-OF-CARE METER ID UU14149397
[2016-10-09 16:09] VITALS: BP 119/59
[2016-10-09 19:42] VITALS: BP 119/56
[2016-10-09 21:23] LABS: POINT-OF-CARE METER ID UU14149397
[2016-10-10] VITALS: BP 111/54
[2016-10-10 04:47] VITALS: BP 132/63
[2016-10-10 06:26] LABS: POINT-OF-CARE METER ID UU14188577
[2016-10-10 06:46] LABS: HEMATOCRIT 26.4 % (36.0-46.0); MCH 31.7 PG (29.0-34.0); MCHC 31.1 G/DL (30.0-36.0); MCV 101.9 FL (83-99); MEAN PLAT.VOLUME 8.8 uM^3 (9.5-12.4); PLATELET COUNT 422 K/uL (156-360); RBC DIS.WIDTH-CV 15.7 % (11.8-14.6); RBC DIS.WIDTH-SD 58.7 % (39-53); RED BLOOD COUNT 2.59 M/uL (3.80-5.20); WHITE BLOOD COUNT 8.7 K/uL (4.1-10.2)
[2016-10-10 07:18] LABS: ANION GAP 13 MEQ/L (2-14); CHLORIDE 94 MEQ/L (99-109); GFR ESTIMATE (CALCULATED) 8 mL/min/; GLUCOSE 113 mg/dL (70-99); POTASSIUM 5.2 MEQ/L (3.7-5.4); SAMPLE HEMOLYSIS CHECK 0; SAMPLE ICTERIC CHECK 0; SAMPLE LIPEMIA CHECK 0; SODIUM 135 MEQ/L (136-147); UREA NITROGEN (BUN) 40 mg/dL (9-23)
[2016-10-10 08:00] VITALS: BP 133/60
[2016-10-10] MEDS ORDERED: ARANESP100 MCG/0. IV (11:32)
[2016-10-10] MEDS ORDERED: BISAC-EVAC10 MG PR (11:36)
[2016-10-10] MEDS ORDERED: ENDOCET 5-3251 EACH PO (11:37)
[2016-10-10] MEDS ORDERED: SENNA PLUS TAB1 EACH PO (12:06)
[2016-10-10 12:07] LABS: POINT-OF-CARE METER ID UU14149397
[2016-10-10 12:08] VITALS: BP 113/56
[2016-10-10 14:22] LABS: IRON 54 MCG/DL (35-150)
[2016-10-10 16:19] VITALS: BP 136/61
[2016-10-10 16:24] LABS: POINT-OF-CARE METER ID UU14188577
[2016-10-10 20:15] VITALS: BP 155/67
[2016-10-10 20:51] LABS: POINT-OF-CARE METER ID UU14149397
[2016-10-11 00:31] VITALS: BP 162/72
[2016-10-11 04:35] VITALS: BP 148/72
[2016-10-11 06:53] LABS: POINT-OF-CARE METER ID UU14149397
[2016-10-11 09:33] VITALS: BP 150/69
[2016-10-11 11:00] VITALS: BP 123/57
[2016-10-11 11:57] LABS: POINT-OF-CARE METER ID UU14149397
[2016-10-11 16:52] VITALS: BP 169/73
[2016-10-11 16:56] LABS: POINT-OF-CARE METER ID UU14188577
== END 2016-10-11 18:16 | DRG 469 ==
LOC: EME → EDBD 21:10 → 3EAST 09-25 00:20 → 4EAST 09-25 00:20 → EDOF 09-25 00:20 → 4EAST 09-25 01:37 → 3EAST 09-27 14:21
PROVIDERS: Emergency Medicine; Hospitalist; Internal Medicine; Internal Medicine Nephrology; Nurse Practitioner Family; Orthopaedic Surgery
PROC: 0SRR0JA Replacement of Right Hip Joint, Femoral Surface with Synthetic Substitute, Uncemented, Open Approach (ICD-10-PCS; principal; 2016-09-28)
PROC: 5A1D60Z (ICD-10-PCS; principal; 2016-09-28)
PROC: 30233N1 Transfusion of Nonautologous Red Blood Cells into Peripheral Vein, Percutaneous Approach (ICD-10-PCS; principal; 2016-09-28)
DX: S72.001A Fracture of unspecified part of neck of right femur, initial encounter for closed fracture (principal); G93.41 Metabolic encephalopathy; J96.01 Acute respiratory failure with hypoxia; J44.9 Chronic obstructive pulmonary disease, unspecified; N18.6 End stage renal disease; L03.032 Cellulitis of left toe; L08.9 Local infection of the skin and subcutaneous tissue, unspecified; E11.42 Type 2 diabetes mellitus with diabetic polyneuropathy; N25.81 Secondary hyperparathyroidism of renal origin; I25.10 Atherosclerotic heart disease of native coronary artery without angina pectoris; D63.1 Anemia in chronic kidney disease; I16.0 Hypertensive urgency; E11.22 Type 2 diabetes mellitus with diabetic chronic kidney disease; E43 Unspecified severe protein-calorie malnutrition; D69.6 Thrombocytopenia, unspecified; E11.65 Type 2 diabetes mellitus with hyperglycemia; I12.0 Hypertensive chronic kidney disease with stage 5 chronic kidney disease or end stage renal disease; L89.329 Pressure ulcer of left buttock, unspecified stage; L89.319 Pressure ulcer of right buttock, unspecified stage; L89.629 Pressure ulcer of left heel, unspecified stage; L89.619 Pressure ulcer of right heel, unspecified stage; L89.610 Pressure ulcer of right heel, unstageable; L89.321 Pressure ulcer of left buttock, stage 1; L89.311 Pressure ulcer of right buttock, stage 1; L89.620 Pressure ulcer of left heel, unstageable; J90 Pleural effusion, not elsewhere classified; I35.0 Nonrheumatic aortic (valve) stenosis; G25.81 Restless legs syndrome; F03.90 Unspecified dementia, unspecified severity, without behavioral disturbance, psychotic disturbance, mood disturbance, and anxiety; I77.819 Aortic ectasia, unspecified site; W19.XXXA Unspecified fall, initial encounter; Z68.26 Body mass index [BMI] 26.0-26.9, adult; Z99.2 Dependence on renal dialysis; Y99.9 Unspecified external cause status; Z79.4 Long term (current) use of insulin; Z91.81 History of falling; Y93.9 Activity, unspecified; Y92.9 Unspecified place or not applicable; I25.2 Old myocardial infarction; Z60.2 Problems related to living alone; Z95.5 Presence of coronary angioplasty implant and graft; Z86.73 Personal history of transient ischemic attack (TIA), and cerebral infarction without residual deficits
CPT/HCPCS: 36600; 70450; 71010; 71020; 71275; 72100; 73501; 73502; 73630; 78582; 80048; 80053; 80069; 82728; 82803; 82948; 83540; 84100; 84466; 84484; 85014; 85018; 85025; 85027; 85610; 85730; 86900; 86901; 86920; 87040; 93005; 93971; 94640; 94640 76; 94799; 97530 GO; 97530 GP; 99202; 99281; 99285; A9540; A9567; J0330; J0690; J0881; J1100; J1170; J1270; J1644; J1756; J1815; J1956; J2270; J2405; J2997; J3010; J7040; J7050; P9016

== ENCOUNTER 2016-11-09 13:51 | Inpatient (IN) | payer OTHER ==
[~2016-11-09] VITALS: Ht 162.6 cm; Wt 56.8 kg
[~2016-11-09 13:51] MED LIST changes: +ACIDOPHILUS LA1 EACH PO; +ADVAIR HFA120 INHALA IH; +ARANESP100 MCG/0. IV; +BISAC-EVAC10 MG PR; +ENDOCET 5-3251 EACH PO; +NOVOLOG PE100 UNITS/ SC; +PROCARDIA XL60 MG PO; +REFRESH PLUS1 EACH LEFT EYE; +SENNA PLUS TAB1 EACH PO; +SPIRIVA RESPIMAT4 GM IH; +SUPER B COMP1 TABLET PO; +THERAGRAN1 TABLET PO; +VENTOLIN HFA18 GM IH
[2016-11-09 15:24] LABS: EOSINOPHIL (%) 0.1 % (0-5); HEMATOCRIT 32.4 % (36.0-46.0); IMMATURE GRANULOCYTE (%) 0.8 % (0.0-0.7); IMMATURE GRANULOCYTE COUNT 0.2 K/uL; INSTRUMENT ABS NEUTROPHIL CT 17.6 K/uL; LYMPHOCYTE COUNT 0.8 K/uL (1.0-2.8); MCH 33.8 PG (29.0-34.0); MCHC 31.8 G/DL (30.0-36.0); MCV 106.2 FL (83-99); MONOCYTE (%) 2.4 % (3-12); MONOCYTE COUNT 0.5 K/uL (0-0.8); NEUTROPHIL (%) 92.2 % (45-76); NEUTROPHIL COUNT 17.6 K/uL (1.8-6.4); RBC DIS.WIDTH-CV 18.4 % (11.8-14.6); RBC DIS.WIDTH-SD 71.5 % (39-53); WHITE BLOOD COUNT 19.1 K/uL (4.1-10.2)
[2016-11-09 15:31] LABS: PLATELET COUNT 153 K/uL (156-360); RED BLOOD COUNT 3.05 M/uL (3.80-5.20)
[2016-11-09 15:49] LABS: ALKALINE PHOSPHATASE 78 IU/L (3-129); ANION GAP 11 MEQ/L (2-14); CHLORIDE 92 MEQ/L (99-109); GFR ESTIMATE (CALCULATED) 20 mL/min/; GLUCOSE 129 mg/dL (70-99); POTASSIUM 3.2 MEQ/L (3.7-5.4); SAMPLE HEMOLYSIS CHECK 0; SAMPLE ICTERIC CHECK 0; SAMPLE LIPEMIA CHECK 0; SODIUM 139 MEQ/L (136-147); TOTAL BILIRUBIN 1.2 MG/DL (0.0-1.0); UREA NITROGEN (BUN) 14 mg/dL (9-23)
[2016-11-09 16:05] LABS: TROP-I INTERPRETATION POSITIVE
[2016-11-09 16:47] LABS: INTER. NORMALIZED RATIO 1.1; PROTHROMBIN TIME 11.5 (9.2-11.2); PTT 34.1 (25-32)
[2016-11-09 16:58] LABS: BICARBONATE 38.5 mEq/L (22-26); CARBOXY HGB 2.5 % (0-5); METHEMOGLOBIN 1.1 % (0-1.5); PO2 54 mm Hg (80-100)
[2016-11-09 17:00] LABS: COMMENTS - BLOOD GASES A+C+; DEVICE NC; O2 FLOW 4 L/MIN; PCO2 42 mm Hg (35-45); SITE RR; pH 7.57 (7.35-7.45)
[2016-11-09 19:44] LABS: HEMATOCRIT 28.5 % (36.0-46.0); MCH 33.1 PG (29.0-34.0); MCHC 31.2 G/DL (30.0-36.0); MCV 105.9 FL (83-99); MEAN PLAT.VOLUME 9.6 uM^3 (9.5-12.4); PLATELET COUNT 143 K/uL (156-360); RBC DIS.WIDTH-CV 18.3 % (11.8-14.6); RBC DIS.WIDTH-SD 71.3 % (39-53); RED BLOOD COUNT 2.69 M/uL (3.80-5.20); WHITE BLOOD COUNT 16.3 K/uL (4.1-10.2)
[2016-11-09] MEDS ORDERED: FUROSEMIDE20 MG PO (19:54)
[2016-11-09] MEDS ORDERED: ACETAMINOPHEN325 M1 PO (19:54)
[2016-11-09] MEDS ORDERED: ZOFRAN4 MG PO (19:55)
[2016-11-09] MEDS ORDERED: REFRESH TEARS15 ML LEFT EYE (19:58)
[2016-11-09] MEDS ORDERED: SPIRIVA1 INHALATI IH (19:59)
[2016-11-09] MEDS ORDERED: DAILY VITAMIN1 EAC4 PO (20:01)
[2016-11-09] MEDS ORDERED: MILK OF MAGN PO (20:03)
[2016-11-09] MEDS ORDERED: DULCOLAX10 MG PR (20:04)
[2016-11-09] MEDS ORDERED: ARANESP100 MCG/0. IV (20:05)
[2016-11-09] MEDS ORDERED: GLUCAGEN1 MG IM (20:06)
[2016-11-09] MEDS ORDERED: DEXTROSE 50%50 ML IV (20:08)
[2016-11-09] MEDS ORDERED: GLUCOSE GEL15 GM PO (20:10)
[2016-11-09] MEDS ORDERED: BOOST GLUCOSE237 M1 PO (20:11)
[2016-11-09 21:24] VITALS: BP 156/70
[2016-11-10 01:30] LABS: TROP-I INTERPRETATION POSITIVE; TROPONIN-I 7.02 ng/mL (0.0-0.30)
[2016-11-10 04:34] VITALS: BP 161/72
[2016-11-10 05:56] LABS: EOSINOPHIL (%) 0.3 % (0-5); HEMATOCRIT 27.7 % (36.0-46.0); IMMATURE GRANULOCYTE (%) 0.6 % (0.0-0.7); IMMATURE GRANULOCYTE COUNT 0.1 K/uL; INSTRUMENT ABS NEUTROPHIL CT 9.8 K/uL; LYMPHOCYTE COUNT 1.2 K/uL (1.0-2.8); MCH 33.9 PG (29.0-34.0); MCHC 31.4 G/DL (30.0-36.0); MCV 107.8 FL (83-99); MEAN PLAT.VOLUME 9.8 uM^3 (9.5-12.4); MONOCYTE (%) 4.7 % (3-12); MONOCYTE COUNT 0.6 K/uL (0-0.8); NEUTROPHIL (%) 83.7 % (45-76); NEUTROPHIL COUNT 9.8 K/uL (1.8-6.4); PLATELET COUNT 147 K/uL (156-360); RBC DIS.WIDTH-CV 18.6 % (11.8-14.6); RBC DIS.WIDTH-SD 73.2 % (39-53); RED BLOOD COUNT 2.57 M/uL (3.80-5.20); WHITE BLOOD COUNT 11.7 K/uL (4.1-10.2)
[2016-11-10 06:26] LABS: TROP-I INTERPRETATION POSITIVE; TROPONIN-I 6.92 ng/mL (0.0-0.30)
[2016-11-10 06:28] LABS: ANION GAP 10 MEQ/L (2-14); CHLORIDE 93 MEQ/L (99-109); GFR ESTIMATE (CALCULATED) 14 mL/min/; POTASSIUM 3.1 MEQ/L (3.7-5.4); SAMPLE HEMOLYSIS CHECK 0; SAMPLE ICTERIC CHECK 0; SAMPLE LIPEMIA CHECK 0; SODIUM 140 MEQ/L (136-147)
[2016-11-10 06:33] LABS: GLUCOSE 88 mg/dL (70-99); UREA NITROGEN (BUN) 23 mg/dL (9-23)
[2016-11-10 07:17] VITALS: BP 166/72
[2016-11-10 08:22] LABS: POINT-OF-CARE METER ID UU14174216
[2016-11-10 11:33] LABS: POINT-OF-CARE METER ID UU14174216
[2016-11-10 12:15] VITALS: BP 119/60
[2016-11-10 16:03] LABS: IRON 15 MCG/DL (35-150)
[2016-11-10 16:30] VITALS: BP 146/64
[2016-11-10 16:51] LABS: POINT-OF-CARE METER ID UU14174216
[2016-11-10 19:04] VITALS: BP 132/63
[2016-11-10 19:22] LABS: INTER. NORMALIZED RATIO 1.2; PTT 44.4 (25-32)
[2016-11-10 23:43] VITALS: BP 158/70
[2016-11-11 03:10] LABS: CHLORIDE 96 mEq/L (99-109); POTASSIUM 3.4 mEq/L (3.7-5.4); SODIUM 142 mEq/L (136-147)
[2016-11-11 03:13] LABS: ANION GAP 14 MEQ/L (2-14)
[2016-11-11 03:15] LABS: GFR ESTIMATE (CALCULATED) 11 mL/min/; GLUCOSE 111 mg/dL (70-99)
[2016-11-11 03:16] LABS: UREA NITROGEN (BUN) 33 mg/dL (9-23)
[2016-11-11 04:25] VITALS: BP 159/67
[2016-11-11 07:12] VITALS: BP 167/73
[2016-11-11 07:57] LABS: POINT-OF-CARE METER ID UU14174216
[2016-11-11 11:53] VITALS: BP 124/58
[2016-11-11 16:09] VITALS: BP 164/74
[2016-11-11 18:23] LABS: INTER. NORMALIZED RATIO 1.1; PTT 45.9 (25-32)
[2016-11-11 19:52] VITALS: BP 194/82
[2016-11-12] VITALS (7 sets, daily range): BP systolic 141–193; BP diastolic 60–79
[2016-11-12 08:17] LABS: EOSINOPHIL (%) 1.7 % (0-5); EOSINOPHIL COUNT 0.2 K/uL (0-0.3); HEMATOCRIT 26.5 % (36.0-46.0); IMMATURE GRANULOCYTE (%) 0.6 % (0.0-0.7); IMMATURE GRANULOCYTE COUNT 0.1 K/uL; INSTRUMENT ABS NEUTROPHIL CT 7.2 K/uL; MCH 34.4 PG (29.0-34.0); MCHC 32.1 G/DL (30.0-36.0); MCV 107.3 FL (83-99); MEAN PLAT.VOLUME 9.7 uM^3 (9.5-12.4); MONOCYTE (%) 5.2 % (3-12); MONOCYTE COUNT 0.5 K/uL (0-0.8); NEUTROPHIL (%) 81.2 % (45-76); NEUTROPHIL COUNT 7.2 K/uL (1.8-6.4); PLATELET COUNT 195 K/uL (156-360); RBC DIS.WIDTH-CV 17.5 % (11.8-14.6); RBC DIS.WIDTH-SD 69.4 % (39-53); RED BLOOD COUNT 2.47 M/uL (3.80-5.20); WHITE BLOOD COUNT 8.9 K/uL (4.1-10.2)
[2016-11-12 08:20] LABS: ANION GAP 12 MEQ/L (2-14); CHLORIDE 95 MEQ/L (99-109); GFR ESTIMATE (CALCULATED) 8 mL/min/; MAGNESIUM 2.1 mg/dl (1.3-2.7); POTASSIUM 3.9 MEQ/L (3.7-5.4); SAMPLE HEMOLYSIS CHECK 0; SAMPLE ICTERIC CHECK 0; SAMPLE LIPEMIA CHECK 0; SODIUM 137 MEQ/L (136-147); UREA NITROGEN (BUN) 42 mg/dL (9-23)
[2016-11-12 08:24] LABS: GLUCOSE 196 mg/dL (70-99)
[2016-11-12 12:16] LABS: POINT-OF-CARE METER ID UU13113781
[2016-11-12 16:41] LABS: POINT-OF-CARE METER ID UU13113781
[2016-11-12 21:12] LABS: POINT-OF-CARE METER ID UU14174216
[2016-11-13] VITALS (8 sets, daily range): BP systolic 158–190; BP diastolic 48–81
[2016-11-14 03:32] VITALS: BP 140/70
[2016-11-14 05:57] VITALS: BP 130/67
[2016-11-14 05:57] LABS: POINT-OF-CARE METER ID UU13113725
[2016-11-14 07:04] LABS: BASOPHIL COUNT 0.1 K/uL (0-0.1); EOSINOPHIL (%) 2.6 % (0-5); EOSINOPHIL COUNT 0.2 K/uL (0-0.3); HEMATOCRIT 30.6 % (36.0-46.0); IMMATURE GRANULOCYTE COUNT 0.1 K/uL; INSTRUMENT ABS NEUTROPHIL CT 6.2 K/uL; LYMPHOCYTE COUNT 1.2 K/uL (1.0-2.8); MCH 34.5 PG (29.0-34.0); MCV 107.7 FL (83-99); MEAN PLAT.VOLUME 9.6 uM^3 (9.5-12.4); MONOCYTE (%) 8.2 % (3-12); MONOCYTE COUNT 0.7 K/uL (0-0.8); NEUTROPHIL (%) 73.6 % (45-76); NEUTROPHIL COUNT 6.2 K/uL (1.8-6.4); PLATELET COUNT 269 K/uL (156-360); RBC DIS.WIDTH-CV 17.3 % (11.8-14.6); RBC DIS.WIDTH-SD 69.3 % (39-53); RED BLOOD COUNT 2.84 M/uL (3.80-5.20); WHITE BLOOD COUNT 8.4 K/uL (4.1-10.2)
[2016-11-14 07:23] LABS: ANION GAP 13 MEQ/L (2-14); CHLORIDE 100 MEQ/L (99-109); GFR ESTIMATE (CALCULATED) 9 mL/min/; SAMPLE HEMOLYSIS CHECK 0; SAMPLE ICTERIC CHECK 0; SAMPLE LIPEMIA CHECK 0; SODIUM 141 MEQ/L (136-147); UREA NITROGEN (BUN) 30 mg/dL (9-23)
[2016-11-14 07:24] LABS: GLUCOSE 72 mg/dL (70-99)
[2016-11-14 07:30] VITALS: BP 181/73
[2016-11-14 10:26] LABS: POINT-OF-CARE METER ID UU13113681; POINT-OF-CARE USER ID DROKMM72
[2016-11-14 12:30] VITALS: BP 163/72
[2016-11-14 15:25] VITALS: BP 158/74
[2016-11-14 17:01] LABS: POINT-OF-CARE METER ID UU13113725
[2016-11-14 21:42] LABS: POINT-OF-CARE METER ID UU13113725
[2016-11-15] VITALS (7 sets, daily range): BP systolic 156–172; BP diastolic 67–75
[2016-11-15 22:09] LABS: POINT-OF-CARE METER ID UU13113725
[2016-11-16 04:00] VITALS: BP 171/64
[2016-11-16 06:34] LABS: BASOPHIL COUNT 0.1 K/uL (0-0.1); EOSINOPHIL (%) 1.7 % (0-5); EOSINOPHIL COUNT 0.2 K/uL (0-0.3); HEMATOCRIT 30.3 % (36.0-46.0); IMMATURE GRANULOCYTE (%) 0.9 % (0.0-0.7); IMMATURE GRANULOCYTE COUNT 0.1 K/uL; INSTRUMENT ABS NEUTROPHIL CT 8.2 K/uL; LYMPHOCYTE COUNT 1.2 K/uL (1.0-2.8); MCH 34.8 PG (29.0-34.0); MCV 108.6 FL (83-99); MONOCYTE (%) 7.1 % (3-12); MONOCYTE COUNT 0.8 K/uL (0-0.8); NEUTROPHIL (%) 77.8 % (45-76); NEUTROPHIL COUNT 8.2 K/uL (1.8-6.4); PLATELET COUNT 307 K/uL (156-360); RBC DIS.WIDTH-CV 17.6 % (11.8-14.6); RBC DIS.WIDTH-SD 70.2 % (39-53); RED BLOOD COUNT 2.79 M/uL (3.80-5.20); WHITE BLOOD COUNT 10.5 K/uL (4.1-10.2)
[2016-11-16 06:59] LABS: ANION GAP 13 MEQ/L (2-14); CHLORIDE 101 MEQ/L (99-109); GFR ESTIMATE (CALCULATED) 9 mL/min/; GLUCOSE 89 mg/dL (70-99); POTASSIUM 4.5 MEQ/L (3.7-5.4); SAMPLE HEMOLYSIS CHECK 0; SAMPLE ICTERIC CHECK 0; SAMPLE LIPEMIA CHECK 0; SODIUM 141 MEQ/L (136-147); UREA NITROGEN (BUN) 23 mg/dL (9-23)
[2016-11-16 17:39] LABS: POINT-OF-CARE METER ID UU13113725
[2016-11-16 18:41] VITALS: BP 162/73
[2016-11-16 20:03] VITALS: BP 143/67
[2016-11-17 00:45] VITALS: BP 158/70
[2016-11-17 05:58] LABS: POINT-OF-CARE METER ID UU13113725
[2016-11-17 07:14] VITALS: BP 172/71
[2016-11-17 16:20] VITALS: BP 130/65
[2016-11-17 21:03] VITALS: BP 162/72
[2016-11-17 21:35] LABS: POINT-OF-CARE USER ID STWHLR41
[2016-11-17 23:50] VITALS: BP 166/93
[2016-11-18 04:12] VITALS: BP 158/70
[2016-11-18 06:25] LABS: POINT-OF-CARE USER ID STWHLR41
[2016-11-18 07:25] VITALS: BP 177/81
[2016-11-18 11:20] VITALS: BP 160/77
[2016-11-18 15:20] VITALS: BP 160/74
[2016-11-18 19:08] VITALS: BP 146/67
[2016-11-18 22:57] VITALS: BP 153/69
[2016-11-19 07:00] VITALS: BP 174/74
[2016-11-19 08:16] LABS: BASOPHIL COUNT 0.1 K/uL (0-0.1); EOSINOPHIL (%) 1.7 % (0-5); EOSINOPHIL COUNT 0.1 K/uL (0-0.3); HEMATOCRIT 30.5 % (36.0-46.0); IMMATURE GRANULOCYTE (%) 0.4 % (0.0-0.7); INSTRUMENT ABS NEUTROPHIL CT 5.9 K/uL; LYMPHOCYTE COUNT 0.9 K/uL (1.0-2.8); MCH 34.4 PG (29.0-34.0); MCHC 31.8 G/DL (30.0-36.0); MCV 108.2 FL (83-99); MEAN PLAT.VOLUME 8.8 uM^3 (9.5-12.4); MONOCYTE (%) 7.4 % (3-12); MONOCYTE COUNT 0.6 K/uL (0-0.8); NEUTROPHIL (%) 77.8 % (45-76); NEUTROPHIL COUNT 5.9 K/uL (1.8-6.4); PLATELET COUNT 325 K/uL (156-360); RBC DIS.WIDTH-CV 16.7 % (11.8-14.6); RBC DIS.WIDTH-SD 66.7 % (39-53); RED BLOOD COUNT 2.82 M/uL (3.80-5.20); WHITE BLOOD COUNT 7.5 K/uL (4.1-10.2)
[2016-11-19 08:35] LABS: ANION GAP 11 MEQ/L (2-14); CHLORIDE 103 MEQ/L (99-109); GFR ESTIMATE (CALCULATED) 7 mL/min/; GLUCOSE 148 mg/dL (70-99); POTASSIUM 4.9 MEQ/L (3.7-5.4); SAMPLE HEMOLYSIS CHECK 0; SAMPLE ICTERIC CHECK 0; SAMPLE LIPEMIA CHECK 0; SODIUM 140 MEQ/L (136-147); UREA NITROGEN (BUN) 27 mg/dL (9-23)
[2016-11-19 12:41] VITALS: BP 146/65
[2016-11-19 16:07] VITALS: BP 136/73
[2016-11-19 16:56] LABS: POINT-OF-CARE METER ID UU13113725
[2016-11-19 20:30] VITALS: BP 142/63
[2016-11-19 20:36] LABS: POINT-OF-CARE METER ID UU13113725
[2016-11-20] VITALS: BP 131/81
[2016-11-20 04:28] VITALS: BP 159/75
[2016-11-20 08:42] VITALS: BP 133/64
[2016-11-20 16:27] VITALS: BP 118/59
[2016-11-20 21:00] VITALS: BP 150/65
[2016-11-20 22:55] VITALS: BP 140/63
[2016-11-21 07:05] LABS: BASOPHIL COUNT 0.1 K/uL (0-0.1); EOSINOPHIL (%) 1.2 % (0-5); EOSINOPHIL COUNT 0.1 K/uL (0-0.3); HEMATOCRIT 31.7 % (36.0-46.0); IMMATURE GRANULOCYTE (%) 0.5 % (0.0-0.7); LYMPHOCYTE COUNT 1.2 K/uL (1.0-2.8); MCH 33.2 PG (29.0-34.0); MCHC 31.9 G/DL (30.0-36.0); MCV 104.3 FL (83-99); MEAN PLAT.VOLUME 9.1 uM^3 (9.5-12.4); MONOCYTE (%) 8.9 % (3-12); MONOCYTE COUNT 0.7 K/uL (0-0.8); NEUTROPHIL (%) 73.7 % (45-76); PLATELET COUNT 297 K/uL (156-360); RBC DIS.WIDTH-CV 16.1 % (11.8-14.6); RBC DIS.WIDTH-SD 62.6 % (39-53); RED BLOOD COUNT 3.04 M/uL (3.80-5.20); WHITE BLOOD COUNT 8.2 K/uL (4.1-10.2)
[2016-11-21 07:31] LABS: ANION GAP 10 MEQ/L (2-14); CHLORIDE 98 MEQ/L (99-109); POTASSIUM 4.9 MEQ/L (3.7-5.4); SAMPLE HEMOLYSIS CHECK 0; SAMPLE ICTERIC CHECK 0; SAMPLE LIPEMIA CHECK 0; SODIUM 137 MEQ/L (136-147)
[2016-11-21 07:37] LABS: GFR ESTIMATE (CALCULATED) 8 mL/min/; GLUCOSE 118 mg/dL (70-99); UREA NITROGEN (BUN) 21 mg/dL (9-23)
[2016-11-21] MEDS ORDERED: LONITEN2.5 MG PO (08:35)
[2016-11-21] MEDS ORDERED: NEURONTIN100 MG PO (08:35)
[2016-11-21] MEDS ORDERED: ROCEPHIN 2 GM VI2 GM IM (08:47)
[2016-11-21] MEDS ORDERED: ASPIR 8181 M1 PO (08:47)
[2016-11-21 16:23] VITALS: BP 159/69
== END 2016-11-21 17:08 | DRG 280 ==
LOC: EME 13:51 → 5EAST 18:32 → 4EAST 18:32 → 5EAST 18:32 → EDOF 18:32 → 4EAST 20:40 → 5EAST 11-13 21:41
PROVIDERS: Emergency Medicine; Hospitalist; Internal Medicine; Internal Medicine Nephrology
PROC: 5A1D60Z (ICD-10-PCS; principal; 2016-11-10)
DX: I21.4 Non-ST elevation (NSTEMI) myocardial infarction (principal); J96.01 Acute respiratory failure with hypoxia; E43 Unspecified severe protein-calorie malnutrition; J18.9 Pneumonia, unspecified organism; I96 Gangrene, not elsewhere classified; J81.1 Chronic pulmonary edema; N18.6 End stage renal disease; I12.0 Hypertensive chronic kidney disease with stage 5 chronic kidney disease or end stage renal disease; B95.1 Streptococcus, group B, as the cause of diseases classified elsewhere; D50.9 Iron deficiency anemia, unspecified; E11.621 Type 2 diabetes mellitus with foot ulcer; D63.1 Anemia in chronic kidney disease; E05.90 Thyrotoxicosis, unspecified without thyrotoxic crisis or storm; E11.22 Type 2 diabetes mellitus with diabetic chronic kidney disease; E11.622 Type 2 diabetes mellitus with other skin ulcer; E55.9 Vitamin D deficiency, unspecified; E78.5 Hyperlipidemia, unspecified; E83.39 Other disorders of phosphorus metabolism; E87.6 Hypokalemia; F01.50 Vascular dementia, unspecified severity, without behavioral disturbance, psychotic disturbance, mood disturbance, and anxiety; G25.81 Restless legs syndrome; E11.42 Type 2 diabetes mellitus with diabetic polyneuropathy; G93.41 Metabolic encephalopathy; H54.0 Blindness, both eyes; I25.10 Atherosclerotic heart disease of native coronary artery without angina pectoris; I25.2 Old myocardial infarction; I35.0 Nonrheumatic aortic (valve) stenosis; I44.7 Left bundle-branch block, unspecified; Z99.2 Dependence on renal dialysis; Y95 Nosocomial condition; L89.619 Pressure ulcer of right heel, unspecified stage; N25.81 Secondary hyperparathyroidism of renal origin; Z82.49 Family history of ischemic heart disease and other diseases of the circulatory system; Z86.73 Personal history of transient ischemic attack (TIA), and cerebral infarction without residual deficits; Z95.5 Presence of coronary angioplasty implant and graft; R44.3 Hallucinations, unspecified; R54 Age-related physical debility; S22.39XD Fracture of one rib, unspecified side, subsequent encounter for fracture with routine healing; X58.XXXD Exposure to other specified factors, subsequent encounter; S72.001D Fracture of unspecified part of neck of right femur, subsequent encounter for closed fracture with routine healing; I49.1 Atrial premature depolarization; Z96.641 Presence of right artificial hip joint; F17.200 Nicotine dependence, unspecified, uncomplicated; R78.81 Bacteremia; H91.90 Unspecified hearing loss, unspecified ear; L97.521 Non-pressure chronic ulcer of other part of left foot limited to breakdown of skin; L89.629 Pressure ulcer of left heel, unspecified stage; L89.152 Pressure ulcer of sacral region, stage 2; Z68.20 Body mass index [BMI] 20.0-20.9, adult; T50.905A Adverse effect of unspecified drugs, medicaments and biological substances, initial encounter; R41.0 Disorientation, unspecified
CPT/HCPCS: 36600; 70450; 71010; 80048; 80053; 80069; 81003; 82306; 82803; 82948; 83540; 83605; 83735; 84466; 84484; 85025; 85027; 85610; 85730; 87040; 87070; 87205; 87449; 93005; 94640; 94640 76; 94799; 97530 GP; 99202; 99281; 99285; J0360; J0456; J0696; J0881; J1644; J1756; J1815; J1940; J2270; J2543; J3370; J7050

== ENCOUNTER 2016-11-26 00:19 | Inpatient (IN) | payer OTHER ==
[~2016-11-26] VITALS: Ht 160 cm; Wt 47.8 kg
[~2016-11-26 00:19] MED LIST changes: +ACETAMINOPHEN325 M1 PO; +ASPIR 8181 M1 PO; +BOOST GLUCOSE237 M1 PO; +DAILY VITAMIN1 EAC4 PO; +DEXTROSE 50%50 ML IV; +DULCOLAX10 MG PR; +FUROSEMIDE20 MG PO; +GLUCAGEN1 MG IM; +GLUCOSE GEL15 GM PO; +LONITEN2.5 MG PO; +MILK OF MAGN PO; +REFRESH TEARS15 ML LEFT EYE; +ROCEPHIN 2 GM VI2 GM IM; +SPIRIVA1 INHALATI IH; +ZOFRAN4 MG PO
[2016-11-26 02:19] LABS: BASOPHIL COUNT 0.1 K/uL (0-0.1); EOSINOPHIL (%) 0.2 % (0-5); HEMATOCRIT 34.9 % (36.0-46.0); IMMATURE GRANULOCYTE (%) 0.5 % (0.0-0.7); IMMATURE GRANULOCYTE COUNT 0.1 K/uL; INSTRUMENT ABS NEUTROPHIL CT 15.2 K/uL; LYMPHOCYTE COUNT 0.7 K/uL (1.0-2.8); MCH 32.7 PG (29.0-34.0); MCHC 31.2 G/DL (30.0-36.0); MCV 104.8 FL (83-99); MEAN PLAT.VOLUME 8.7 uM^3 (9.5-12.4); MONOCYTE (%) 3.2 % (3-12); MONOCYTE COUNT 0.5 K/uL (0-0.8); NEUTROPHIL (%) 91.7 % (45-76); NEUTROPHIL COUNT 15.2 K/uL (1.8-6.4); PLATELET COUNT 313 K/uL (156-360); RBC DIS.WIDTH-SD 62.1 % (39-53); RED BLOOD COUNT 3.33 M/uL (3.80-5.20); WHITE BLOOD COUNT 16.6 K/uL (4.1-10.2)
[2016-11-26 02:31] LABS: CHLORIDE 97 mEq/L (99-109); POTASSIUM 4.3 mEq/L (3.7-5.4); SODIUM 142 mEq/L (136-147)
[2016-11-26 02:32] LABS: GLUCOSE 131 mg/dL (70-99)
[2016-11-26 02:34] LABS: ANION GAP 18 MEQ/L (2-14)
[2016-11-26 02:36] LABS: GFR ESTIMATE (CALCULATED) 7 mL/min/
[2016-11-26 02:37] LABS: UREA NITROGEN (BUN) 24 mg/dL (9-23)
[2016-11-26 02:40] LABS: TROP-I INTERPRETATION NEGATIVE; TROPONIN-I 0.13 ng/mL (0.0-0.30)
[2016-11-26 07:37] VITALS: BP 136/65
[2016-11-26 08:12] LABS: POINT-OF-CARE METER ID UU13113698
[2016-11-26] MEDS ORDERED: MORPHINE CON20 MG/M1 PO (10:50)
[2016-11-26 11:41] LABS: POINT-OF-CARE METER ID UU13113698
[2016-11-26] MEDS ORDERED: LABETALOL HCL200 MG PO (11:47)
[2016-11-26 11:49] VITALS: BP 174/74
[2016-11-26] MEDS ORDERED: SPIRIVA RESPIMAT4 GM IH (11:50)
[2016-11-26] MEDS ORDERED: ACIDOPHILUS1 EAC3 PO (11:51)
[2016-11-26] MEDS ORDERED: PERCOCET 5/31 TABLET PO (11:52)
[2016-11-26] MEDS ORDERED: MINOXIDIL2.5 MG PO (11:56)
[2016-11-26] MEDS ORDERED: DUONEB 2.5-0.5 M3 ML AEROSOL (12:05)
[2016-11-26] MEDS ORDERED: FEVERALL650 M1 PR (12:07)
[2016-11-26 19:45] VITALS: BP 146/64
[2016-11-27] VITALS (7 sets, daily range): BP systolic 126–178; BP diastolic 58–87
[2016-11-27 05:46] LABS: HEMATOCRIT 30.5 % (36.0-46.0); MCH 32.9 PG (29.0-34.0); MCHC 31.1 G/DL (30.0-36.0); MCV 105.5 FL (83-99); MEAN PLAT.VOLUME 9.2 uM^3 (9.5-12.4); PLATELET COUNT 295 K/uL (156-360); RBC DIS.WIDTH-CV 15.9 % (11.8-14.6); RBC DIS.WIDTH-SD 61.3 % (39-53); RED BLOOD COUNT 2.89 M/uL (3.80-5.20); WHITE BLOOD COUNT 8.9 K/uL (4.1-10.2)
[2016-11-27 06:11] LABS: ANION GAP 12 MEQ/L (2-14); CHLORIDE 98 MEQ/L (99-109); GFR ESTIMATE (CALCULATED) 12 mL/min/; GLUCOSE 81 mg/dL (70-99); POTASSIUM 4.1 MEQ/L (3.7-5.4); SAMPLE HEMOLYSIS CHECK 0; SAMPLE ICTERIC CHECK 0; SAMPLE LIPEMIA CHECK 0; SODIUM 142 MEQ/L (136-147); UREA NITROGEN (BUN) 18 mg/dL (9-23); VANCOMYCIN, TROUGH 10.3 MCG/ML (10-20)
[2016-11-27 11:56] LABS: POINT-OF-CARE METER ID UU13113698
[2016-11-27 16:56] LABS: POINT-OF-CARE METER ID UU13113698
[2016-11-28] VITALS: BP 136/60
[2016-11-28 05:43] LABS: BASOPHIL COUNT 0.1 K/uL (0-0.1); EOSINOPHIL (%) 2.1 % (0-5); EOSINOPHIL COUNT 0.2 K/uL (0-0.3); IMMATURE GRANULOCYTE (%) 0.4 % (0.0-0.7); INSTRUMENT ABS NEUTROPHIL CT 6.3 K/uL; LYMPHOCYTE COUNT 0.8 K/uL (1.0-2.8); MCH 32.2 PG (29.0-34.0); MCHC 30.6 G/DL (30.0-36.0); MCV 105.1 FL (83-99); MONOCYTE (%) 8.3 % (3-12); MONOCYTE COUNT 0.7 K/uL (0-0.8); NEUTROPHIL COUNT 6.3 K/uL (1.8-6.4); PLATELET COUNT 316 K/uL (156-360); RBC DIS.WIDTH-CV 15.7 % (11.8-14.6); RBC DIS.WIDTH-SD 60.8 % (39-53); RED BLOOD COUNT 2.95 M/uL (3.80-5.20)
[2016-11-28 06:39] LABS: ANION GAP 16 MEQ/L (2-14); CHLORIDE 98 MEQ/L (99-109); GFR ESTIMATE (CALCULATED) 9 mL/min/; GLUCOSE 79 mg/dL (70-99); POTASSIUM 4.3 MEQ/L (3.7-5.4); SAMPLE HEMOLYSIS CHECK 0; SAMPLE ICTERIC CHECK 0; SAMPLE LIPEMIA CHECK 0; SODIUM 143 MEQ/L (136-147)
[2016-11-28 06:42] LABS: UREA NITROGEN (BUN) 29 mg/dL (9-23)
[2016-11-28 08:41] LABS: POINT-OF-CARE METER ID UU13113698; POINT-OF-CARE USER ID NUTSLF44
[2016-11-28 09:00] VITALS: BP 174/73
[2016-11-28 12:04] VITALS: BP 155/70
[2016-11-28 12:36] LABS: POINT-OF-CARE METER ID UU13113698; POINT-OF-CARE USER ID NUTSLF44
[2016-11-28 21:55] VITALS: BP 137/63
[2016-11-29 23:18] VITALS: BP 145/70
[2016-12-01 13:14] VITALS: BP 00/00
== END 2016-12-02 09:24 | DRG 871 ==
LOC: EME 00:19 → 4EAST 04:09 → EDOF 04:09 → 4EAST 07:00 → 5EAST 11-28 21:25
PROVIDERS: Emergency Medicine; Family Medicine; Internal Medicine
PROC: 5A1D00Z (ICD-10-PCS; principal; 2016-11-26)
DX: A41.9 Sepsis, unspecified organism (principal); J18.9 Pneumonia, unspecified organism; J96.01 Acute respiratory failure with hypoxia; I12.0 Hypertensive chronic kidney disease with stage 5 chronic kidney disease or end stage renal disease; N18.6 End stage renal disease; E11.22 Type 2 diabetes mellitus with diabetic chronic kidney disease; N25.81 Secondary hyperparathyroidism of renal origin; E11.621 Type 2 diabetes mellitus with foot ulcer; E11.40 Type 2 diabetes mellitus with diabetic neuropathy, unspecified; L97.409 Non-pressure chronic ulcer of unspecified heel and midfoot with unspecified severity; E83.39 Other disorders of phosphorus metabolism; D63.1 Anemia in chronic kidney disease; E78.5 Hyperlipidemia, unspecified; I25.10 Atherosclerotic heart disease of native coronary artery without angina pectoris; F01.50 Vascular dementia, unspecified severity, without behavioral disturbance, psychotic disturbance, mood disturbance, and anxiety; G25.81 Restless legs syndrome; I35.0 Nonrheumatic aortic (valve) stenosis; G89.29 Other chronic pain; M54.5 Low back pain; Y95 Nosocomial condition; Z51.5 Encounter for palliative care; Z66 Do not resuscitate; Z96.649 Presence of unspecified artificial hip joint; I25.2 Old myocardial infarction; Z79.4 Long term (current) use of insulin; Z86.73 Personal history of transient ischemic attack (TIA), and cerebral infarction without residual deficits; Z99.2 Dependence on renal dialysis
CPT/HCPCS: 31720; 71010; 80048; 80069; 80202; 81003; 82565; 82948; 83605; 84484; 85025; 85027; 87040; 87070; 87106; 87205; 93005; 94640; 94640 76; 94799; 99281; 99285; J0360; J0456; J0692; J1644; J1815; J2270; J3370; J7050